=== PATIENT | female | born 1950 | race Caucasian/White ===

== ENCOUNTER 2018-04-16 14:32 | Inpatient (IN) | payer MEDICARE, MEDICAID | END 2018-04-23 17:05 | disposition E | LOC: TELE-EAST 04-23 15:53 → EAST 14:32 | PROC: 0DH63UZ Insertion of Feeding Device into Stomach, Percutaneous Approach (ICD-10-PCS; principal; 2018-04-22 16:52) | DX: R13.10 Dysphagia, unspecified (principal); G93.41 Metabolic encephalopathy; C71.9 Malignant neoplasm of brain, unspecified; G81.94 Hemiplegia, unspecified affecting left nondominant side; E44.0 Moderate protein-calorie malnutrition; E87.0 Hyperosmolality and hypernatremia; E86.0 Dehydration; R62.7 Adult failure to thrive; G40.409 Other generalized epilepsy and epileptic syndromes, not intractable, without status epilepticus; I67.1 Cerebral aneurysm, nonruptured; E87.6 Hypokalemia; J44.9 Chronic obstructive pulmonary disease, unspecified; Z85.841 Personal history of malignant neoplasm of brain; H53.462 Homonymous bilateral field defects, left side ==